=== PATIENT | male | born 1980 ===

== ENCOUNTER 2017-07-12 18:46 | Emergency (ER) | payer SELFPAY ==
[~2017-07-12] VITALS: Ht 175.3 cm; Wt 93.0 kg
[2017-07-12] MEDS ORDERED: THIAMINE HCL(*) 200 MG/2 ML IN 100 MG, FOLIC ACID(*) 50 MG/10 ML INJ 1 MG, MULTIVITAMIN... IV ONE (19:13)
--- NOTE | 2017-07-12 19:17 | ER Report ---
History and Physical Time Seen By MD: 19:02 Hx. of Stated Complaint: PT IS ALTERED MOST LIKELY FROM ETOH PER PT. STATES THAT HE IS HAVING CHEST PAIN AND IS GOING TO . HAS LONG HISTORY OF ETOH ABUSE. HPI/ROS CHIEF COMPLAINT: Chest pain, throat pain HISTORY OF PRESENT ILLNESS: 37-year-old male patient presents to emergency room via EMS with complaint of chest pain and throat pain. Patient states that he is 2 days sober of alcohol. He states he been drinking 2 bottles of Listerine a day. He states that he stopped drinking couple days ago and then developed a sharp pinching pain in his left chest. He states he is also felt short of breath. He states that he has throat pain as well. He states that this is been going on for 2-3 weeks. He denies having any nausea, vomiting or diarrhea. He states his pain is significant. He states that he has not taken any medication for this. He states he is not seeing anybody else for this in the last 2-3 weeks. He states he recently moved back to [place] from [place] to live with his brother. REVIEW OF SYSTEMS: Respiratory: No cough, no dyspnea. Cardiovascular: As noted above Gastrointestinal: No vomiting, no abdominal pain. Musculoskeletal: No back pain. Allergies: Coded Allergies: No Known Drug Allergies (Unverified , 07/12/17) Home Meds No Active Prescriptions or Reported Meds Past Medical/Surgical History She is unable to give a coherent past medical history at this time. Unable To Obtain Past Medical: Unable to Obtain/Update Reviewed Nurses Notes: Yes Constitutional Vital Sign - Last 24 Hours 07/12/17 07/12/17 07/12/17 18:48 19:30 20:00 Temp 98.7 Pulse 118 120 120 Resp 27 14 16 B/P (MAP) 128/82 132/88 (103) 130/86 (101) Pulse Ox 86 89 90 O2 Delivery Room Air Room Air Room Air Physical Exam General Appearance: The patient is alert, has no immediate need for airway protection and no current signs of toxicity. Patient appears intoxicated, does have a small hole call to them. ENT: Tympanic membranes are pearly-saenz, auditory canals are patent, mucus mucous membranes are moist. Respiratory: Chest is non tender, lungs are clear to auscultation. Cardiac: regular rhythm. Patient is tachycardic. Gastrointestinal: Abdomen is soft and diffusely tender, no masses, bowel sounds normal. Musculoskeletal: Neck: Neck is supple and non tender. Extremities have full range of motion and are non tender. Skin: No rashes or lesions. DIFFERENTIAL DIAGNOSIS: After history and physical exam differential diagnosis was considered for alcohol abuse, alcohol detox, MS, pneumonia, influenza, strep pharyngitis. Medical Decision Making Data Points Result Diagram: 07/12/17193807/12/171938 Laboratory Hematology Test 07/12/17 00:00 07/12/17 19:39 07/12/17 20:48 Influenza Virus Type A (PCR) Negative (NEGATIVE) Influenza Virus Type B (PCR) Negative (NEGATIVE) Red Blood Count 4.70 M/uL (4.00-5.60) Mean Corpuscular Volume 92.8 fL (80.0-96.0) Mean Corpuscular Hemoglobin 31.8 pg (26.0-33.0) Mean Corpuscular Hemoglobin Concent 34.3 g/dL (32.0-36.0) Red Cell Distribution Width 14.2 % (11.5-14.5) Mean Platelet Volume 7.2 fL (7.2-11.1) Neutrophils (%) (Auto) 53.1 % (39.4-72.5) Lymphocytes (%) (Auto) 34.5 % (17.6-49.6) Monocytes (%) (Auto) 8.3 % (4.1-12.4) Eosinophils (%) (Auto) 2.8 % (0.4-6.7) Basophils (%) (Auto) 1.3 % (0.3-1.4) Nucleated RBC Relative Count (auto) 0.0 /100WBC Neutrophils # (Auto) 4.2 K/uL (2.0-7.4) Lymphocytes # (Auto) 2.8 K/uL (1.3-3.6) Monocytes # (Auto) 0.7 K/uL (0.3-1.0) Eosinophils # (Auto) 0.2 K/uL (0.0-0.5) Basophils # (Auto) 0.1 K/uL (0.0-0.1) Nucleated RBC Absolute Count (auto) 0.00 K/uL Sodium Level 143 mmol/L (137-145) Potassium Level 4.0 mmol/L (3.5-5.0) Chloride Level 104 mmol/L (98-107) Carbon Dioxide Level 25 mmol/L (22-30) Blood Urea Nitrogen 9 mg/dl (9-21) Creatinine 0.80 mg/dl (0.66-1.25) Glomerular Filtration Rate Calc > 60.0 Random Glucose 105 mg/dl (75-110) Calcium Level 8.5 mg/dl (8.4-10.2) Magnesium Level 2.0 mg/dl (1.7-2.2) Total Bilirubin 0.4 mg/dl (0.2-1.3) Aspartate Amino Transf (AST/SGOT) 137 U/L (0-35) Alanine Aminotransferase (ALT/SGPT) 56 U/L (0-56) Alkaline Phosphatase 178 U/L (0-126) Troponin I < 0.012 ng/ml Total Protein 8.4 gm/dl (6.3-8.2) Albumin 4.3 g/dl (3.5-5.0) Salicylates Level 19 mg/L Salicylate Last Dose Date unk Acetaminophen Level < 10 ug/ml Serum Alcohol 346 mg/dl Urine Color Yellow Urine Clarity Clear Urine pH 5.0 pH (4.8-9.5) Urine Specific [place] 1.010 Urine Protein Negative mg/dL (NEGATIVE) Urine Glucose (UA) Negative mg/dL (NEGATIVE) Urine Ketones Negative mg/dL (NEGATIVE) Urine Blood Negative (NEGATIVE) Urine Nitrite Negative (NEGATIVE) Urine Bilirubin Negative (NEGATIVE) Urine Urobilinogen Negative mg/dL (0.2-1.9) Urine Leukocyte Esterase Negative (NEGATIVE) Urine RBC None /HPF (0-2/HPF) Urine WBC <1 /HPF (0-5/HPF) Urine Squamous Epithelial Cells None /LPF (</=FEW) Urine Bacteria Negative /HPF (NONE-FEW) Urine Hyaline Casts Few /LPF (NONE-FEW) Urine Mucus None /HPF (NONE-FEW) Urine Opiates Screen Negative Urine Barbiturates Screen Positive Ur Tricyclic Antidepressants Screen Negative Urine Phencyclidine Screen Negative Urine Amphetamines Screen Negative Urine Benzodiazepines Screen Positive Urine Cocaine Screen Negative Urine Cannabinoids Screen Negative Chemistry Test 07/12/17 00:00 07/12/17 19:39 07/12/17 20:48 Influenza Virus Type A (PCR) Negative (NEGATIVE) Influenza Virus Type B (PCR) Negative (NEGATIVE) White Blood Count 8.0 k/uL (4.5-11.0) Red Blood Count 4.70 M/uL (4.00-5.60) Hemoglobin 14.9 g/dL (14.0-18.0) Hematocrit 43.6 % (42.0-52.0) Mean Corpuscular Volume 92.8 fL (80.0-96.0) Mean Corpuscular Hemoglobin 31.8 pg (26.0-33.0) Mean Corpuscular Hemoglobin Concent 34.3 g/dL (32.0-36.0) Red Cell Distribution Width 14.2 % (11.5-14.5) Platelet Count 246 K/uL (150-450) Mean Platelet Volume 7.2 fL (7.2-11.1) Neutrophils (%) (Auto) 53.1 % (39.4-72.5) Lymphocytes (%) (Auto) 34.5 % (17.6-49.6) Monocytes (%) (Auto) 8.3 % (4.1-12.4) Eosinophils (%) (Auto) 2.8 % (0.4-6.7) Basophils (%) (Auto) 1.3 % (0.3-1.4) Nucleated RBC Relative Count (auto) 0.0 /100WBC Neutrophils # (Auto) 4.2 K/uL (2.0-7.4) Lymphocytes # (Auto) 2.8 K/uL (1.3-3.6) Monocytes # (Auto) 0.7 K/uL (0.3-1.0) Eosinophils # (Auto) 0.2 K/uL (0.0-0.5) Basophils # (Auto) 0.1 K/uL (0.0-0.1) Nucleated RBC Absolute Count (auto) 0.00 K/uL Glomerular Filtration Rate Calc > 60.0 Calcium Level 8.5 mg/dl (8.4-10.2) Magnesium Level 2.0 mg/dl (1.7-2.2) Total Bilirubin 0.4 mg/dl (0.2-1.3) Aspartate Amino Transf (AST/SGOT) 137 U/L (0-35) Alanine Aminotransferase (ALT/SGPT) 56 U/L (0-56) Alkaline Phosphatase 178 U/L (0-126) Troponin I < 0.012 ng/ml Total Protein 8.4 gm/dl (6.3-8.2) Albumin 4.3 g/dl (3.5-5.0) Salicylates Level 19 mg/L Salicylate Last Dose Date unk Acetaminophen Level < 10 ug/ml Serum Alcohol 346 mg/dl Urine Color Yellow Urine Clarity Clear Urine pH 5.0 pH (4.8-9.5) Urine Specific [place] 1.010 Urine Protein Negative mg/dL (NEGATIVE) Urine Glucose (UA) Negative mg/dL (NEGATIVE) Urine Ketones Negative mg/dL (NEGATIVE) Urine Blood Negative (NEGATIVE) Urine Nitrite Negative (NEGATIVE) Urine Bilirubin Negative (NEGATIVE) Urine Urobilinogen Negative mg/dL (0.2-1.9) Urine Leukocyte Esterase Negative (NEGATIVE) Urine RBC None /HPF (0-2/HPF) Urine WBC <1 /HPF (0-5/HPF) Urine Squamous Epithelial Cells None /LPF (</=FEW) Urine Bacteria Negative /HPF (NONE-FEW) Urine Hyaline Casts Few /LPF (NONE-FEW) Urine Mucus None /HPF (NONE-FEW) Urine Opiates Screen Negative Urine Barbiturates Screen Positive Ur Tricyclic Antidepressants Screen Negative Urine Phencyclidine Screen Negative Urine Amphetamines Screen Negative Urine Benzodiazepines Screen Positive Urine Cocaine Screen Negative Urine Cannabinoids Screen Negative Toxicology Test 07/12/17 19:39 07/12/17 20:48 Salicylates Level 19 mg/L Salicylate Last Dose Date unk Acetaminophen Level < 10 ug/ml Serum Alcohol 346 mg/dl Urine Opiates Screen Negative Urine Barbiturates Screen Positive Ur Tricyclic Antidepressants Screen Negative Urine Phencyclidine Screen Negative Urine Amphetamines Screen Negative Urine Benzodiazepines Screen Positive Urine Cocaine Screen Negative Urine Cannabinoids Screen Negative Urinalysis Test 07/12/17 20:48 Urine Color Yellow Urine Clarity Clear Urine pH 5.0 pH (4.8-9.5) Urine Specific [place] 1.010 Urine Protein Negative mg/dL (NEGATIVE) Urine Glucose (UA) Negative mg/dL (NEGATIVE) Urine Ketones Negative mg/dL (NEGATIVE) Urine Blood Negative (NEGATIVE) Urine Nitrite Negative (NEGATIVE) Urine Bilirubin Negative (NEGATIVE) Urine Urobilinogen Negative mg/dL (0.2-1.9) Urine Leukocyte Esterase Negative (NEGATIVE) Urine RBC None /HPF (0-2/HPF) Urine WBC <1 /HPF (0-5/HPF) Urine Squamous Epithelial Cells None /LPF (</=FEW) Urine Bacteria Negative /HPF (NONE-FEW) Urine Hyaline Casts Few /LPF (NONE-FEW) Urine Mucus None /HPF (NONE-FEW) EKG/Imaging EKG Interpretation 12 lead EKG: Rhythm: Sinus tachycardia with ventricular rate of 121 bpm [place]: Left axis deviation QRS: normal ST segments: normal Imaging EXAMINATION: Chest 2 Views HISTORY: Chest pain. COMPARISON: None. FINDINGS: The lungs are clear. No focal consolidation or pleural fluid. No pneumothorax. Normal cardiomediastinal silhouette, with normal heart size and pulmonary vascularity. Visualized osseous structures are unremarkable. IMPRESSION: Negative chest. Report Dictated By: Humble Murillo MD at 07/12/2017 8:56 PM Report E-Signed By: Humble Murillo MD at 07/12/2017 8:57 PM ED Course/Re-evaluation ED Course Patient was admitted to an exam room history and physical were obtained. Differential diagnoses were considered. On examination patient was having a hard time verbalizing what was going on, he was complaining of chest pain, he is complaining of sore throat. He states that this been going on for 2 weeks for the sore throat 3 weeks for the chest pain. He states that he been drinking 2 bottles of Listerine and today. He states that his last drink was 2 days ago that he was detoxing. Labs were ordered for a behavioral health admission. An IV was started. Shortly after I had my initial evaluation patient was getting dressed and was walking out. The nurse directed him back to his room. His brother came and joint him. After a few minutes he was laying on the ground. A therapy assistant myself help get him up to the bed. He was nonresponsive, however he did respond to painful stimuli. I then did a sternal rub and the patient came to. Patient at that time was speaking much more clear, he said that he wanted to sleep on the ground as it was "safer". I told the patient the need to stay in bed. He states at that time he would like to detox. Behavioral health did come down and visit with him. While he was being talked to by behavioral health he states that his last drink of alcohol was at 5:00 today. He states that he wanted to be admitted for detox. His brother also stated that he wanted to be admitted to detox from alcohol same time. They state they were traveling through [place] headed to [place]. The labs were unremarkable except for the patient had a blood alcohol of 346. Patient had a normal white count. A chest x- ray was obtained which was negative for any acute cardiopulmonary processes. An EKG was done which showed a sinus tachycardia. Troponin was done which was negative. An influenza screen was done which was also negative. I became concerned with the changing story as well as the brother wanting to be admitted for detox as well. I went and talked with the patient again. Patient states that time that he was having chest pain that's been going on as well as sore throat. He states sore throats been going on for a week. At that time I asked him why of the story keeps changing that earlier it was 2 weeks. That he was drinking Listerine. He states that he was in fact drinking Listerine and that's been 2 days since he drank. With his blood alcohol being elevated I believe that the patient is malingering cortney trying to get secondary gain by an admission to behavioral health. We will go ahead and discharge patient home at this time. He is to follow-up with primary care provider when he arrives to the next location. Decision to Disposition Date: Jul 12, 2017 Decision to Disposition Time: 21:01 Depart Departure Latest Vital Signs Vital Signs Date Time Temp Pulse Resp B/P (MAP) Pulse Ox O2 Delivery O2 Flow Rate FiO2 07/12/17 20:00 120 16 130/86 (101) 90 Room Air 07/12/17 18:48 98.7 Impression: Primary Impression: Alcohol intoxication Additional Impression: Malingering Condition: Improved Disposition: HOME OR SELF-CARE New Scripts No Active Prescriptions or Reported Meds Patient Instructions: Alcohol Intoxication (ED) Additional Instructions: Increase fluid intake. Get plenty of rest. Follow up with a primary care provider when you get to where you are going. Take cough and cold medication. Avoid alcohol. Return to the ER if condition worsens. Problem Qualifiers Primary Impression: Alcohol intoxication Complication of substance-induced condition: uncomplicated Qualified Codes: F10.920 - Alcohol use, unspecified with intoxication, uncomplicated PEPE HERRMANN [facility] Jul 12, 2017 19:17
--- NOTE | 2017-07-12 19:36 | EKG ---
FACILITY: [facility] [place] PATIENT NAME: WANDER JIMENEZ : [id number] MR: [id number] V: [id number] EXAM DATE: ORDERING PHYSICIAN: PEPE HERRMANN TECHNOLOGIST: Test Reason : Blood Pressure : / mmHG Vent. Rate : 121 BPM Atrial Rate : 121 BPM P-R Int : 138 ms QRS Dur : 094 ms QT Int : 332 ms P-R-T Axes : 031 -74 010 degrees QTc Int : 471 ms Sinus tachycardia Left axis deviation Cannot rule out Anterior infarct , age undetermined Abnormal ECG No previous ECGs available Confirmed by KELLY PRAKASH ([id number]) on 07/13/2017 5:36:56 AM Referred By: Confirmed By:KELLY PRAKASH
[2017-07-12 19:46] LABS: PLATELET COUNT, AUTOMATED 246 K/uL (150-450)
[2017-07-12 20:00] VITALS: BP 130/86
[2017-07-12] MEDS ORDERED: LORazepam 2 MG/ML VIAL IVP ONE (20:05)
--- NOTE | 2017-07-12 21:01 | RADIOLOGY IMAGING REPORT ---
FACILITY: [facility] PATIENT NAME: Adebayo Nichols : 1980 MR: [id number] V: [id number] EXAM DATE: ORDERING PHYSICIAN: PEPE HERRMANN TECHNOLOGIST: Location: [facility] Patient: Adebayo Nichols : 1980 Visit/Account:[id number] Date of Sevice: 07/12/2017 EXAMINATION: Chest 2 Views HISTORY: Chest pain. COMPARISON: None. FINDINGS: The lungs are clear. No focal consolidation or pleural fluid. No pneumothorax. Normal cardiomedias tinal silhouette, with normal heart size and pulmonary vascularity. Visualized osseous structures ar e unremarkable. IMPRESSION: Negative chest. Report Dictated By: Humble Murillo MD at 07/12/2017 8:56 PM Report E-Signed By: Humble Murillo MD at 07/12/2017 8:57 PM WSN:[id number]
== END 2017-07-12 22:00 | disposition home or self-care (01) ==
LOC: ER 19:09
DX: F10.920 Alcohol use, unspecified with intoxication, uncomplicated (principal); Z76.5 Malingerer [conscious simulation]; R00.0 Tachycardia, unspecified; Y90.8 Blood alcohol level of 240 mg/100 ml or more; R94.31 Abnormal electrocardiogram [ECG] [EKG]
CPT/HCPCS: 71046; 80305; 80320; 80329; 81001; 83735; 84443; 84484; 85025; 87502; 93005; 96365; 96366; 96375; 99284; J2060; J3411; J3475; J7030; 82040; 82247; 82310; 82374; 82435; 82565; 82947; 84075; 84132; 84155; 84295; 84450; 84460; 84520

== ENCOUNTER → 2017-07-12 | Outpatient (CLI) | payer SELFPAY | LOC: AMB 18:19 | PROVIDERS: ATTEND Nurse Practitioner | DX: R07.9 Chest pain, unspecified (principal); F10.20 Alcohol dependence, uncomplicated | CPT/HCPCS: A0425; A0427 ==